=== PATIENT | female | born 1945 | race Caucasian/White ===

== ENCOUNTER 2017-03-30 19:31 | Emergency (ER) | payer MEDICARE, OTHER ==
[2017-03-30] MEDS ORDERED: RX INFO: IV CONTRAST WAS GIVEN 1 EACH MISC MISCELLANE PRN (19:37)
[2017-03-30 19:39] VITALS: BP 151/82; PULSE 88; RESP 16; TEMP 97.1
[2017-03-30 19:40] LABS: Glucose,Whole Blood 102 mg/dL (75-99)
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
[2017-03-30 20:15] LABS: Amorphous Sediment,Urine Rare /hpf; Appearance,Urine Clear (Clear); Bilirubin,Urine Negative (Negative); Blood,Urine Negative (Negative); Color,Urine Colorless; Glucose,Urine (UA) Negative (Negative); Ketones,Urine Negative (Negative); Leukocyte Esterase,Urine Small (Negative); Mucus,Urine Rare /hpf; Nitrite,Urine Negative (Negative); Protein,Urine Negative (Negative); RBC,Urine 3 /hpf (0-5); Specific Gravity,Urine 1.004 (1.001-1.035); Squamous Epithelial Cell,Urine <1 /hpf (0-4); Urobilinogen,Urine <2.0 mg/dL (<2.0); WBC,Urine 4 /hpf (0-5)
[2017-03-30 20:20] LABS: Basophils # (A) 0.1 k/uL (0-0.2); Basophils % (A) 1 %; Eosinophils # (A) 0.2 k/uL (0-0.7); Eosinophils % (A) 1 %; HCT 39.8 % (34.0-46.0); HGB 12.7 gm/dL (11.4-16.0); Lymphocytes # (A) 1.5 k/uL (1.0-4.8); Lymphocytes % (A) 13 %; MCH 32.1 pg (25.0-35.0); MCHC 31.9 g/dL (31.0-37.0); MCV 100.6 fL (80.0-100.0); Mean Platelet Volume 6.9; Monocytes # (A) 0.6 k/uL (0-1.0); Monocytes % (A) 5 %; Neutrophils # (A) 9.1 k/uL (1.3-7.7); Neutrophils % (A) 78 %; Platelet Count 286 k/uL (150-450); RBC 3.95 m/uL (3.80-5.40); WBC 11.6 k/uL (3.8-10.6)
[2017-03-30 20:22] LABS: Cocaine Screen,Urine Not Detected (NotDetected); Phencyclidine Screen,Urine Not Detected (NotDetected); Urn Cannabinoid Scrn Not Detected (NotDetected)
[2017-03-30 20:23] LABS: Amphetamine Screen,Urine Not Detected (NotDetected); Barbiturate Screen,Urine Not Detected (NotDetected); Benzodiazepines Screen,Urine Detected (NotDetected); Methadone Screen, Urine Not Detected (NotDetected); Opiate Screen,Urine Detected (NotDetected); Oxycodone Screen, Urine Not Detected (NotDetected); Tricyclic Antidepressant,Urine Not Detected (NotDetected)
[2017-03-30 20:24] LABS: INR 1.1 (<1.2); Prothrombin Time 10.3 sec (9.0-12.0)
[2017-03-30 20:26] LABS: Albumin 4.2 g/dL (3.5-5.0); Anion Gap 14 mmol/L; Carbon Dioxide 20 mmol/L (22-30); Chloride 108 mmol/L (98-107); Glucose 91 mg/dL (74-99); Sodium 142 mmol/L (137-145); Total Bilirubin 0.3 mg/dL (0.2-1.3); Total Protein 6.7 g/dL (6.3-8.2)
[2017-03-30 20:28] LABS: ALT 33 U/L (9-52); AST 41 U/L (14-36); Alcohol 185 mg/dL; Alkaline Phosphatase 63 U/L (38-126); Blood Urea Nitrogen 22 mg/dL (7-17); Potassium 4.7 mmol/L (3.5-5.1)
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
[2017-03-30] MEDS ORDERED: KETOROLAC 30 MG/ML 1 ML VIAL IVP STA (21:14)
[2017-03-31 01:17] LABS: Creatine Kinase 134 U/L (30-135)
[2017-03-31 01:29] LABS: Creatine Kinase MB 1.5 ng/mL (0.0-2.4); Troponin I <0.012 ng/mL (0.000-0.034)
== END 2017-03-30 21:34 | disposition short-term general hospital (02) ==
LOC: EC 19:31
DX: S22.42XA Multiple fractures of ribs, left side, initial encounter for closed fracture (principal); S09.90XA Unspecified injury of head, initial encounter; F10.129 Alcohol abuse with intoxication, unspecified; D72.829 Elevated white blood cell count, unspecified; R41.3 Other amnesia; K21.9 Gastro-esophageal reflux disease without esophagitis; E78.5 Hyperlipidemia, unspecified; I12.9 Hypertensive chronic kidney disease with stage 1 through stage 4 chronic kidney disease, or unspecified chronic kidney disease; N18.3 Chronic kidney disease, stage 3 (moderate); F32.9 Major depressive disorder, single episode, unspecified; Z85.828 Personal history of other malignant neoplasm of skin; Z87.891 Personal history of nicotine dependence; Z79.899 Other long term (current) drug therapy; V48.5XXA Car driver injured in noncollision transport accident in traffic accident, initial encounter; Y92.410 Unspecified street and highway as the place of occurrence of the external cause
CPT/HCPCS: 36415; 93005; 86900; 86901; 80053; 82550; 82553; 83605; 84484; 85025; 85610; 85730; 86850; 81001; 80306; 80320; 72170; 71045; 72125; 70450; 71260; 74177; 99291; 96374; J1885; Q9967

== ENCOUNTER → 2017-08-18 | Outpatient (CLI) | payer MEDICARE, OTHER | END | disposition home or self-care (01) | LOC: LABWHC1 11:19 | PROVIDERS: ATTEND Physical Medicine & Rehabilitation | DX: M48.062 Spinal stenosis, lumbar region with neurogenic claudication (principal); M43.16 Spondylolisthesis, lumbar region; M51.26 Other intervertebral disc displacement, lumbar region; M47.817 Spondylosis without myelopathy or radiculopathy, lumbosacral region; M54.16 Radiculopathy, lumbar region; M47.812 Spondylosis without myelopathy or radiculopathy, cervical region; M54.2 Cervicalgia | CPT/HCPCS: 36415; 82565; 84520 ==

== ENCOUNTER → 2017-09-16 | Outpatient (CLI) | payer MEDICARE, OTHER ==
--- NOTE | 2017-09-16 13:06 | BD ---
EXAMINATION TYPE: Axial Bone Density DATE OF EXAM: 09/16/2017 COMPARISON: NONE CLINICAL HISTORY: 71-year-old female postmenopausal screening Height: 65 Weight: 127.2 FRAX RISK QUESTIONS: Alcohol (3 or more units per day): no Family History (Parent hip fracture): no Glucocorticoids (More than 3mos): no (Ex: prednisone, prednisolone, methylprednisolone, dexamethasone, and hydrocortisone). History of Fracture in Adulthood: yes Secondary Osteoporosis: 1. Type 1 Diabetes: no 2. Hyperthyroidism: no 3. Menopause before 45: no 4. Malnutrition: no 5. Chronic liver disease: no Rheumatoid Arthritis: yes Current Tobacco Use: no RISK FACTORS HISTORY OF: Surgery to Spine/Hip(right/left)/Wrist (right/left): bilateral hips When: lumbar spine surgery- 2012 Family History of Osteoporosis: no Active: no Diet low in dairy products/other sources of calcium: yes Postmenopausal woman: hysterectomy 1993 Lost more than 2 inches in height since high school: just two inches MEDICATIONS: trazodone, atorvastatin, omeprazole, buspirone, Lexapro Additional History: EXAM MEASUREMENTS: Bone mineral densitometry was performed using the TBS System. Bone mineral density about the L Wrist (g/cm2): 0.497 T Score values are as follows: -----Dist. R+U: -2.7 -----Prox. R+U: -2.1 -----Radius total: -2.9 Bone mineral density : baseline IMPRESSION: Osteopenia (T Score between -2.5 and -1) as indicated by T score values at Radius 33%. Note that kishore urements border on osteoporosis. There is slightly increased risk of fracture and the patient may be considered for treatment. Re-Screen 2-5 years. NOTE: T-SCORE=SD OF THE YOUNG ADULT MEAN.
== END | disposition home or self-care (01) ==
LOC: RADBDWWP 09:09
PROVIDERS: ATTEND Family Medicine
DX: M85.88 Other specified disorders of bone density and structure, other site (principal); Z78.0 Asymptomatic menopausal state
CPT/HCPCS: 77081

== ENCOUNTER → 2018-01-22 | Outpatient (CLI) | payer MEDICARE, OTHER ==
--- NOTE | 2018-01-25 07:08 | MM ---
Reason for exam: screening (asymptomatic). Last mammogram was performed 3 years and 2 months ago. History: Patient is postmenopausal and history of other cancer. Retro-pectoral silicone gel implants in both breasts, 2001. Retro-pectoral silicone gel implants in both breasts, 1986. Benign excisional biopsy of the right breast, 1972. Took estrogen for 11 years beginning at age 48. Physical Findings: A clinical breast exam by your physician is recommended on an annual basis and results should be correlated with mammographic findings. MG 3D Screen Mammo Imp/Cad Bilateral CC and MLO view(s) were taken. Prior study comparison: November 15, 2014, bilateral MG diag mamm implants TIMO w CAD. November 14, 2013, bilateral MG diagnostic mammo w CAD TIMO. New microcalcifications upper outer right breast. 7.9cm from nipple. Bilateral implants are intact. This finding is changed when compared with previous exams. ASSESSMENT: Incomplete: need additional imaging evaluation, BI-RAD 0 RECOMMENDATION: Special view mammogram of the right breast. If lesion persists on supplemental views, image directed ultrasound is recommended. [facility] will attempt to contact patient to return for supplemental views and ultrasound if indicated.
== END | disposition home or self-care (01) ==
LOC: RADMAMWWP 12:40
PROVIDERS: ATTEND Family Medicine
DX: Z12.31 Encounter for screening mammogram for malignant neoplasm of breast (principal)
CPT/HCPCS: 77063; 77067

== ENCOUNTER → 2018-01-29 | Outpatient (CLI) | payer MEDICARE, OTHER ==
--- NOTE | 2018-02-01 13:36 | MM ---
Reason for exam: additional evaluation requested from abnormal screening. Last mammogram was performed less than 1 month ago. History: Patient is postmenopausal and history of other cancer. Retro-pectoral silicone gel implants in both breasts, 2001. Retro-pectoral silicone gel implants in both breasts, 1986. Benign excisional biopsy of the right breast, 1972. Took estrogen for 11 years beginning at age 48. Physical Findings: Nurse did not find any significant physical abnormalities on exam. MG 3D Work Up W/Cad W/Imp RT CC with magnification, LM with magnification, and LM view(s) were taken of the right breast. Prior study comparison: January 22, 2018, bilateral MG 3d screen mammo imp/cad. November 15, 2014, bilateral MG diag mamm implants TIMO w CAD. The breast tissue is heterogeneously dense. This may lower the sensitivity of mammography. Finding: There are increased number of round, grouped/clustered calcifications in the upper outer quadrant, middle position of the right breast. New finding since November 15, 2014. These results were verbally communicated with the patient and result sheet given to the patient on 01/29/18. ASSESSMENT: Suspicious, BI-RAD 4 RECOMMENDATION: Stereotactic core biopsy of the right breast. Called Dr. Camilo with mammographic findings and has scheduled an appointment for the patient for 02/09/18 at 2:[address] Gambino. PRELIMINARY REPORT CALLED AND FAXED TO DR. GAMBINO ON 02/01/18.
== END | disposition home or self-care (01) ==
LOC: RADMAMWWP 12:35
PROVIDERS: ATTEND Family Medicine
DX: R92.8 Other abnormal and inconclusive findings on diagnostic imaging of breast (principal)
CPT/HCPCS: 77065; G0279; 77061

== ENCOUNTER → 2018-02-11 | Day surgery (SDC) | payer MEDICARE, OTHER ==
[2018-02-11 12:22] VITALS: BMI 18.6
[2018-02-11 14:42] VITALS: BP 120/78; PULSE 73; RESP 16; TEMP 98
--- NOTE | 2018-02-12 09:44 | MM ---
EXAMINATION TYPE: MG stereo VAD BX RT, MG 3D work up w/cad w/imp RT DATE OF EXAM: 02/11/2018 COMPARISON: 01/22/2018, 01/29/2018, 11/15/2014 CLINICAL HISTORY: 72-year-old female referred for stereotactic core needle biopsy of right upper outer quadrant microcalcifications. TECHNIQUE: Stereotactic guided core biopsy of the right breast. FINDINGS: The procedure of stereotactic guided core biopsy was explained to the patient. Benefits, alternatives, and risks were discussed. An informed consent was then obtained. The shortness pathway was a lateral approach but could not be utilized due to persistent overlying pectoralis muscle. A CC from above approach was utilized. I performed the localization followed by the remainder of the procedure. A vacuum assisted biopsy gun was used to obtain multiple core samples. The patient tolerated the procedure well without any immediate complication. The patient was kept in the radiology department for short stay after the procedure and then discharged home in stable condition. Targeted calcifications are identified in specimen mammogram. Post biopsy mammogram shows the clip to be located slightly anterior also with approximately 2 cm of superior clip migration. The cc view shows a couple tiny residual calcifications. IMPRESSION: SUCCESSFUL, UNCOMPLICATED STEREOTACTIC GUIDED CORE BIOPSY OF POSTERIOR UPPER- OUTER QUADRANT RIGHT BREAST MICROCALCIFICATIONS. NOTE THAT THE CLIP IS DEPOSITED SLIGHTLY ANTERIORLY AND SHOWS 2 CM OF SUPERIOR MIGRATION. FULL PATHOLOGY RESULTS TO FOLLOW. Pathology Results: Benign BREAST, RIGHT, STEREOTACTIC CORE BIOPSY: Benign fibroadipose tissue with stromal scar/fibrosis and associated fat necrosis, calcifications and embedded foreign refractile material. No breast elements are identified. Recommendation Follow up mammogram of the right breast in 6 months. MILA
== END | disposition home or self-care (01) ==
LOC: RADMAMWWP 11:35
PROVIDERS: ATTEND Family Medicine
DX: N60.31 Fibrosclerosis of right breast (principal); N64.1 Fat necrosis of breast
CPT/HCPCS: 88305; 19081; A4648; J2001

== ENCOUNTER → 2018-03-11 | Day surgery (SDC) | payer MEDICARE, OTHER ==
[2018-03-04 13:03] VITALS: BMI 17.5
[~2018-03-11] MED LIST: LACTATED RINGERS 1,000 ML IV SCH; LIDOCAINE 1% 20 ML VIAL (10MG/ML) FOR IV START INTRADERMA PRN; MIDAZOLAM (PF) 2 MG/2 ML VIAL IV PRN; PROPOFOL 10 MG/ML 20 ML VIAL IV ONE
[2018-03-11 09:06] VITALS: RESP 16; TEMP 98
--- NOTE | 2018-03-11 11:05 | P.PCN ---
Date of Procedure: 03/11/18 Procedure(s) Performed: Procedure: Total colonoscopy. Preoperative diagnosis: History of polyps. Postoperative diagnosis: Significant diverticulosis with no evidence of acute diverticulitis, strictures, significant polyps or tumors. Preparation: HalfLytely prep. Sedation: Was provided by anesthesia. Brief clinical history: The patient is a 72-year-old female who is scheduled for this evaluation because of history of polyps and 25 pound weight loss over the last year. The patient has no abdominal complaints, bleeding or anemia. Her last exam was in 2009. Procedure: With the patient on her left lateral decubitus position and after informed consent and adequate sedation, the perianal area was inspected and it did not show any fissures or fistulas. There were no masses felt on digital rectal examination. The Olympus CFH 190L video colonoscope was then inserted in the rectum in the usual fashion and advanced to the cecum. There was significant diverticular disease with multiple diverticular orifices seen scattered on both sides of the colon with no evidence of acute diverticulitis or strictures. The preparation was less than ideal but there was no significant polyps or tumors seen or any obvious mucosal abnormalities or bleeding. I retroflexed the endoscope in the rectum before the endoscope was withdrawn. The patient tolerated the procedure well. Plan: The patient was reassured. Discussed dietary measures. She will follow- up with you as planned. At her age, I did not schedule further screening and advanced can be kept as a contingency based on her overall health in 5 years. She will be discussing that with you.
[2018-03-11 11:30] VITALS: BP 118/76; PULSE 74
== END ==
LOC: ORWHC2ENDO 08:42
DX: Z12.11 Encounter for screening for malignant neoplasm of colon (principal); K57.90 Diverticulosis of intestine, part unspecified, without perforation or abscess without bleeding; Z86.010 Personal history of colon polyps; R63.4 Abnormal weight loss; K21.9 Gastro-esophageal reflux disease without esophagitis; M19.90 Unspecified osteoarthritis, unspecified site; E78.5 Hyperlipidemia, unspecified; Z85.828 Personal history of other malignant neoplasm of skin; I12.9 Hypertensive chronic kidney disease with stage 1 through stage 4 chronic kidney disease, or unspecified chronic kidney disease; N18.3 Chronic kidney disease, stage 3 (moderate); E78.49 Other hyperlipidemia; G89.29 Other chronic pain; M54.9 Dorsalgia, unspecified; Z79.899 Other long term (current) drug therapy
CPT/HCPCS: J2704; G0105

== ENCOUNTER → 2018-03-31 | Outpatient (CLI) | payer MEDICARE, OTHER ==
--- NOTE | 2018-03-31 11:51 | CTL ---
EXAMINATION TYPE: CT Low Dose Lung DATE OF EXAM ORDERED: 03/31/2018 HISTORY: 72-year-old female personal history of tobacco use. Lung cancer screening CT DLP: [address] CTDI: 1.72 mGy Automated exposure control for dose reduction was used. SCREENING VISIT: Baseline COMPARISON: 03/30/2017 TECHNIQUE: Low dose computed tomography scan was performed through the chest at 1 mm thick sections a nd reconstructed images in the coronal/sagittal plane CT DIAGNOSTIC QUALITY: Satisfactory FINDINGS: Bilateral breast implants are demonstrated. Heart normal size with small anterior pericardial effusion measuring up to 8 mm thick. Aorta normal caliber with mild microcalcifications in conventional arch vessel branching anatomy. No thoracic lymph adenopathy by CT size criteria. Mild to moderate diffuse bronchial wall thickening and mild centrilobular emphysema. Biapical pleural parenchymal scarring is present. No consolidation or pleural effusion. No suspicious pulmonary nodules or masses. Visualized upper abdomen shows no gross abnormality. Bones: Healing of the left posterior 11th rib fracture. Delayed union of the left posterolateral 10th rib fracture. Grade 1 anterolisthesis at T2-T3 and T4-C5. The C7 present on the patient's prior exam and is probably on a degenerative basis. IMPRESSION: 1. LungRADS 1 - negative; no suspicious pulmonary nodules or masses. 2. COPD with mild emphysema and biapical pleural-parenchymal scarring. 3. Small anterior pericardial effusion measuring 8 mm thick. RECOMMENDATION: 1. Continue annual low-dose lung cancer screening CT. 2. Smoking cessation. FOLLOW UP CT CHEST RECOMMENDATION: [address] LUNG RAD: Lung-Rad 1 Negative
== END | disposition home or self-care (01) ==
LOC: RADCTMAIN 10:30
PROVIDERS: ATTEND Family Medicine
DX: Z12.2 Encounter for screening for malignant neoplasm of respiratory organs (principal); J43.9 Emphysema, unspecified; J98.4 Other disorders of lung; I31.3 Pericardial effusion (noninflammatory); Z87.891 Personal history of nicotine dependence

== ENCOUNTER → 2018-08-17 | Outpatient (CLI) | payer MEDICARE, OTHER ==
--- NOTE | 2018-08-17 11:31 | MM ---
Reason for exam: follow-up at short interval from prior study. Last mammogram was performed 7 months ago. History: Patient is postmenopausal and history of other cancer. Benign MG stereo VAD BX RT of the right breast, February 11, 2018. Retro-pectoral silicone gel implants in both breasts, 2001. Retro-pectoral silicone gel implants in both breasts, 1986. Benign excisional biopsy of the right breast, 1972. Took estrogen for 11 years beginning at age 48. Physical Findings: Nurse did not find any significant physical abnormalities on exam. MG 3D Diag Mammo Imp W/Cad RT CC, MLO, and ID view(s) were taken of the right breast. Prior study comparison: January 29, 2018, right breast MG 3d work up w/cad w/imp RT. January 22, 2018, bilateral MG 3d screen mammo imp/cad. The breast tissue is heterogeneously dense. This may lower the sensitivity of mammography. Stable right upper outer quadrant posterior depth focal asymmetry. There are residual left calcifications, some biopsied. Superior displacement of the biopsy marker 2.7cm. Some calcifications in prior specimen, no new or increased calcifications. These results were verbally communicated with the patient and result sheet given to the patient on 08/17/18. ASSESSMENT: Benign, BI-RAD 2 RECOMMENDATION: Return to routine screening mammogram schedule for both breasts. Back on schedule.
== END | disposition home or self-care (01) ==
LOC: RADMAMWWP 09:32
PROVIDERS: ATTEND Family Medicine
DX: R92.8 Other abnormal and inconclusive findings on diagnostic imaging of breast (principal); Z98.82 Breast implant status
CPT/HCPCS: 77065; G0279; 77061

== ENCOUNTER → 2018-10-19 | Outpatient (CLI) | payer MEDICARE, OTHER | END | disposition home or self-care (01) | LOC: LABWHC1 10:12 | PROVIDERS: ATTEND Nurse Practitioner | DX: E03.9 Hypothyroidism, unspecified (principal) | CPT/HCPCS: 36415; 84439; 84443 ==

== ENCOUNTER → 2018-11-09 | Outpatient (CLI) | payer MEDICARE, OTHER ==
[2018-11-09 13:32] LABS: HGB 13.6 gm/dL (11.4-16.0); MCH 30.6 pg (25.0-35.0); MCHC 32.4 g/dL (31.0-37.0); MCV 94.6 fL (80.0-100.0); Mean Platelet Volume 7.5; Platelet Count 291 k/uL (150-450); RBC 4.44 m/uL (3.80-5.40); RDW 13.7 % (11.5-15.5); WBC 6.9 k/uL (3.8-10.6)
== END | disposition home or self-care (01) ==
LOC: LABPAT 12:03
PROVIDERS: ATTEND Internal Medicine Interventional Cardiology
DX: Z01.812 Encounter for preprocedural laboratory examination (principal); R94.39 Abnormal result of other cardiovascular function study
CPT/HCPCS: 36415; 80051; 82565; 84520; 85027

== ENCOUNTER → 2018-11-17 | Day surgery (SDC) | payer MEDICARE, OTHER ==
[2018-11-12 10:44] VITALS: BMI 18.2
[~2018-11-17] MED LIST changes: +ALPRAZolam 0.25 MG TAB PO PRN; +ALPRAZolam 0.5 MG TAB PO PRN; +ASPIRIN 325 MG TAB PO STA; +ATORVASTATIN 80 MG TAB PO STA; +HEPARIN SODIUM 1,000 UN/ML (10ML VL) IV ONE; +HEPARIN SODIUM 1,000 UN/ML (10ML VL) ONE; +IOPAMIDOL-370 100ML BTL INJ ONE; -LACTATED RINGERS 1,000 ML IV SCH; -LIDOCAINE 1% 20 ML VIAL (10MG/ML) FOR IV START INTRADERMA PRN; +LIDOCAINE 1% INJ 10MG/ML (20 ML MDV) ONE; +LIDOCAINE 1% INJ 10MG/ML (20 ML MDV) SQ ONE; -MIDAZOLAM (PF) 2 MG/2 ML VIAL IV PRN; +NITROGLYCERIN SL TABS 0.4 MG TAB SUBLINGUAL PRN; -PROPOFOL 10 MG/ML 20 ML VIAL IV ONE; +SODIUM CHLORIDE 0.9% 1,000 ML IV ONE; +SODIUM CHLORIDE 0.9% 1,000 ML IV SCH; +SODIUM CHLORIDE 0.9% 1,000 ML in EMPTY BAG 1 BAG IV ONE; +VERAPAMIL 2.5 MG/ML 2 ML AMP ONE; +fentaNYL (PF) 50 MCG/ML 2 ML AMP ONE
[2018-11-17 06:43] VITALS: RESP 18; TEMP 97.8
[2018-11-17] MEDS: MIDAZOLAM (PF) 2 MG/2 ML VIAL IV ONE ×2 (07:38→07:45)
[2018-11-17] MEDS: VERAPAMIL SYRINGE (5 MG/10 ML) INTRAARTER ONE ×2 (07:40→07:53)
--- NOTE | 2018-11-17 08:41 | CC ---
CARDIAC CATHETERIZATION REPORT DATE OF SERVICE: 11/17/2018 PROCEDURE: Left heart catheterization and coronary angiography. PERFORMED BY: Dr. Kanika Morrison. Moderate conscious sedation time was 18 minutes. Patient was administered Versed. Oxygen saturation, hemodynamics and EKG were monitored closely. CLINICAL INFORMATION: Mrs. Gris Toro is a 73-year-old lady with hyperlipidemia and abnormal stress test, advised cardiac cath after due discussion regarding risks, benefits, and options. There was an inferior wall partially reversible defect with a question of hypokinesia. PROCEDURE NOTE: Under local anesthesia and strict aseptic precautions, a 6-Latvian introducer was placed in the right radial artery. A right Tawnya diagnostic catheter was used to check LV pressures and selective injection of the RCA. A JL3.5 was used to perform selective coronary angiography of the left system. Patient tolerated procedure well without complication. The sheath was taken out and a TR band applied as per protocol and she was sent to the room in a stable condition. Saturation in the fingers of the right hand was 97%. CARDIAC CATHETERIZATION FINDINGS: The left ventricular end-diastolic pressure was 6 mmHg without any gradient across aortic valve. CORONARY ANGIOGRAPHY FINDINGS: RIGHT CORONARY ARTERY: Large dominant vessel. No significant disease in the proximal, mid and distal portion. It bifurcates into a large PDA and PLV, both of which supply a sizable amount of myocardium. No significant disease in the large super dominant RCA system. LEFT MAIN CORONARY ARTERY: Short patent disease-free vessel that bifurcates into LAD and circumflex. LEFT ANTERIOR DESCENDING CORONARY ARTERY: Good caliber vessel extends along the anterior wall. No significant disease. Distally, the LAD bifurcates into a large diagonal that is free of significant disease and then continues as the LAD towards the apex. No significant disease in the entire LAD system. LEFT POSTERIOR CIRCUMFLEX CORONARY ARTERY: Technically nondominant vessel. Single obtuse marginal that runs laterally and an AV groove branch. No significant disease only minor irregularities noted. LEFT VENTRICULOGRAM: Left ventriculogram was not performed. FINAL IMPRESSION: This patient has a right dominant system. No significant disease. Normal filling pressures. No gradient across aortic valve. RECOMMENDATION: I am recommending continued medical therapy with risk factor modification. An echo will be performed and patient will be discharged later on today and will be seen next week in the office. MMODL / IJN: [id number] /
[2018-11-17 13:15] VITALS: BP 98/60; PULSE 68
--- NOTE | 2018-11-17 17:00 | ECHOF ---
Referral Reason:LV function wall motion MEASUREMENTS -------- HEIGHT: 167.6 cm WEIGHT: 51.3 kg BP: 112/78 RVIDd: 2.8 cm (< 3.3) IVSd: 0.9 cm (0.6 - 1.1) LVIDd: 3.9 cm (3.9 - 5.3) LVPWd: 0.9 cm (0.6 - 1.1) IVSs: 1.1 cm LVIDs: 2.9 cm LVPWs: 1.4 cm LA Diam: 2.9 cm (2.7 - 3.8) LAESV Index (A-L): 20.70 ml/m Ao Diam: 3.0 cm (2.0 - 3.7) AV Cusp: 1.9 cm (1.5 - 2.6) MV EXCURSION: 20.043 mm (> 18.000) MV EF SLOPE: 157 mm/s (70 - 150) EPSS: 0.5 cm MV E Darvin: 0.66 m/s MV DecT: 310 ms MV A Darvin: 0.76 m/s MV E/A Ratio: 0.87 RAP: 5.00 mmHg RVSP: 32.85 mmHg FINDINGS -------- Sinus rhythm. This was a technically adequate study. The left ventricular size is normal. Left ventricular wall thickness is normal. Overall left vent ricular systolic function is low-normal with, an EF between 50 - 55 %. The right ventricle is normal in size. Normal LA size by volume 22+/-6 ml/m2. The right atrium is normal in size. Interatrial and interventricular septum intact. The aortic valve is trileaflet and appears structurally normal. The mitral valve leaflets are mildly thickened. Mild mitral annular calcification present. Mild tricuspid regurgitation present. Right ventricular systolic pressure is normal at < 35 mmHg. Trace/mild (physiologic) pulmonic regurgitation. The aortic root size is normal. There is no pericardial effusion. CONCLUSIONS -------- 1. Sinus rhythm. 2. This was a technically adequate study. 3. The left ventricular size is normal. 4. Left ventricular wall thickness is normal. 5. Overall left ventricular systolic function is low-normal with, an EF between 50 - 55 %. 6. The right ventricle is normal in size. 7. Normal LA size by volume 22+/-6 ml/m2. 8. The right atrium is normal in size. 9. Interatrial and interventricular septum intact. 10. The aortic valve is trileaflet and appears structurally normal. 11. The mitral valve leaflets are mildly thickened. 12. Mild mitral annular calcification present. 13. Mild tricuspid regurgitation present. 14. Right ventricular systolic pressure is normal at < 35 mmHg. 15. Trace/mild (physiologic) pulmonic regurgitation. 16. The aortic root size is normal. 17. There is no pericardial effusion. MACHINE ASSEMBLER SUPERVISOR: Blank Musa RDCS
== END ==
LOC: CATHCVL 06:08
PROVIDERS: ATTEND Internal Medicine Interventional Cardiology
DX: I08.1 Rheumatic disorders of both mitral and tricuspid valves (principal); I37.1 Nonrheumatic pulmonary valve insufficiency; I20.0 Unstable angina; E78.00 Pure hypercholesterolemia, unspecified; R93.1 Abnormal findings on diagnostic imaging of heart and coronary circulation; Z82.49 Family history of ischemic heart disease and other diseases of the circulatory system; Z87.891 Personal history of nicotine dependence; J44.0 Chronic obstructive pulmonary disease with (acute) lower respiratory infection; J20.9 Acute bronchitis, unspecified; G89.29 Other chronic pain; M54.5 Low back pain; E78.2 Mixed hyperlipidemia; Z79.899 Other long term (current) drug therapy
CPT/HCPCS: 93306; 93458; C1769; C1894; J2001; J1644; Q9967; J2250

== ENCOUNTER → 2019-02-01 | Outpatient (CLI) | payer MEDICARE, OTHER ==
--- NOTE | 2019-02-02 11:07 | MM ---
Reason for exam: screening (asymptomatic). Last mammogram was performed 5 months ago. History: Patient is postmenopausal and history of other cancer. Benign MG stereo VAD BX RT of the right breast, February 11, 2018. Retro-pectoral silicone gel implants in both breasts, 2001. Retro-pectoral silicone gel implants in both breasts, 1986. Benign excisional biopsy of the right breast, 1972. Took estrogen for 11 years beginning at age 48. Physical Findings: A clinical breast exam by your physician is recommended on an annual basis and results should be correlated with mammographic findings. MG 3D Screen Mammo Imp/Cad Bilateral CC, MLO, and ID view(s) were taken. Prior study comparison: August 17, 2018, right breast MG 3d diag mammo imp w/cad RT. January 29, 2018, right breast MG 3d work up w/cad w/imp RT. The breast tissue is heterogeneously dense. This may lower the sensitivity of mammography. There are benign appearing round calcifications in the left breast. Right benign vascular calcifications. Previous mammotome biopsy in the right breast. There is chronic nodularity in the right breast. Asymmetric breast tissue left upper outer quadrant stable. There is no discrete abnormality. Bilateral subpectoral implants. ASSESSMENT: Benign, BI-RAD 2 RECOMMENDATION: Routine screening mammogram of both breasts in 2 years.
== END | disposition home or self-care (01) ==
LOC: RADMAMWWP 10:41
PROVIDERS: ATTEND Family Medicine
DX: Z12.31 Encounter for screening mammogram for malignant neoplasm of breast (principal)
CPT/HCPCS: 77063; 77067

== ENCOUNTER → 2020-07-05 | Outpatient (CLI) | payer MEDICARE, OTHER ==
--- NOTE | 2020-07-06 09:41 | MM ---
Reason for exam: screening (asymptomatic). Last mammogram was performed 1 year and 5 months ago. History: Patient is postmenopausal and history of other cancer. Benign MG stereo VAD BX RT of the right breast, February 11, 2018. Retro-pectoral silicone gel implants in both breasts, 2001. Retro-pectoral silicone gel implants in both breasts, 1986. Benign excisional biopsy of the right breast, 1972. Took estrogen for 11 years beginning at age 48. Physical Findings: A clinical breast exam by your physician is recommended on an annual basis and results should be correlated with mammographic findings. MG 3D Screen Mammo Imp/Cad Bilateral CC, MLO, and ID view(s) were taken. Prior study comparison: February 01, 2019, bilateral MG 3d screen mammo imp/cad. August 17, 2018, right breast MG 3d diag mammo imp w/cad RT. The breast tissue is heterogeneously dense. This may lower the sensitivity of mammography. Finding #1: There is a 10 mm equal density (isodense), oval mass in the upper outer quadrant of the right breast. Finding #2: There are typically benign calcifications in both breasts. ASSESSMENT: Incomplete: need additional imaging evaluation, BI-RAD 0 RECOMMENDATION: Ultrasound of the right breast. [facility] will attempt to contact patient to return for ultrasound.
== END | disposition home or self-care (01) ==
LOC: RADMAMWWP 10:50
PROVIDERS: ATTEND Family Medicine
DX: Z12.31 Encounter for screening mammogram for malignant neoplasm of breast (principal); Z78.0 Asymptomatic menopausal state
CPT/HCPCS: 77063; 77067

== ENCOUNTER → 2020-07-10 | Outpatient (CLI) | payer MEDICARE, OTHER ==
--- NOTE | 2020-07-10 10:45 | USB ---
Reason for exam: clinical finding. History: Patient is postmenopausal and history of other cancer. Benign MG stereo VAD BX RT of the right breast, February 11, 2018. Retro-pectoral silicone gel implants in both breasts, 2001. Retro-pectoral silicone gel implants in both breasts, 1986. Benign excisional biopsy of the right breast, 1972. Took estrogen for 11 years beginning at age 48. Indicated problem(s): palpable abnormality and pain in the right breast. Physical Findings: Nurse did not find any significant physical abnormalities on exam. US Breast Workup Limited RT Right limited breast ultrasound including focal area of concern, retroareolar and axilla demonstrates a 0.4 x 0.3 x 0.4cm lesion too small to characterize at the posterior nipple. These results were verbally communicated with the patient and result sheet given to the patient on 07/10/20. ASSESSMENT: Probably benign, BI-RAD 3 RECOMMENDATION: Ultrasound of the right breast in 6 months. Manage patient on a clinical basis.
== END | disposition home or self-care (01) ==
LOC: RADUSWWP 08:41
PROVIDERS: ATTEND Family Medicine
DX: N64.59 Other signs and symptoms in breast (principal); Z78.0 Asymptomatic menopausal state

== ENCOUNTER → 2021-01-21 | Outpatient (CLI) | payer MEDICARE, OTHER ==
--- NOTE | 2021-01-21 11:10 | USB ---
Reason for exam: follow-up at short interval from prior study. History: Patient is postmenopausal and history of other cancer. Benign MG stereo VAD BX RT of the right breast, February 11, 2018. Retro-pectoral silicone gel implants in both breasts, 2001. Retro-pectoral silicone gel implants in both breasts, 1986. Benign excisional biopsy of the right breast, 1972. Took estrogen for 11 years beginning at age 48. Physical Findings: Nurse did not find any significant physical abnormalities on exam. US Breast Limited RT Right limited breast ultrasound including focal area of concern, retroareolar and axilla demonstrates a 0.5 x 0.3 x 0.5cm lesion too small to characterize at the posterior nipple versus 4 x 4 x 3mm previously, continued follow up recommended. Scanned 9-12 o'clock. These results were verbally communicated with the patient and result sheet given to the patient on 01/21/21. ASSESSMENT: Probably benign, BI-RAD 3 RECOMMENDATION: Follow-up diagnostic mammogram of both breasts in 6 months. Ultrasound of the right breast in 6 months.
== END | disposition home or self-care (01) ==
LOC: RADUSWWP 09:30
PROVIDERS: ATTEND Family Medicine
DX: N64.89 Other specified disorders of breast (principal); Z78.0 Asymptomatic menopausal state

== ENCOUNTER → 2021-01-23 | Outpatient (CLI) | payer MEDICARE, OTHER ==
--- NOTE | 2021-01-23 14:33 | US ---
EXAMINATION TYPE: US kidneys/renal and bladder DATE OF EXAM: 01/23/2021 COMPARISON: CT 03/30/2017 CLINICAL HISTORY: 75-year-old female N18.3 chronic kidney disease stage 3. TECHNIQUE: Multiple sonographic images of the kidneys and bladder are obtained. FINDINGS: EXAM MEASUREMENTS: Right Kidney: 7.7 x 3.9 x 4.0 cm Left Kidney: 9.1 x 4.7 x 3.8 cm Right Kidney: measures small in size, 1.4cm cyst lateral midpole. There is an extrarenal pelvis. No c alyceal dilatation to suggest hydronephrosis. Left Kidney: 1.4cm cyst inferior pole. No hydronephrosis. Bladder: wnl Bilateral Jets seen: yes IMPRESSION: Relatively small size of the kidneys suggest chronic medical renal disease. No hydronephrosis. A rosa gn cortical cyst on either side measuring up to 1.4 cm.
== END ==
LOC: RADUSWWP 10:39
PROVIDERS: ATTEND Internal Medicine Nephrology
DX: N18.30 Chronic kidney disease, stage 3 unspecified (principal); N28.1 Cyst of kidney, acquired
CPT/HCPCS: 76770

== ENCOUNTER → 2021-08-02 | Outpatient (CLI) | payer MEDICARE, OTHER ==
--- NOTE | 2021-08-02 15:28 | USB ---
Reason for Exam: Follow-up at short interval from prior study. Last mammogram was performed 1 year(s) and 1 month(s) ago. Patient History: Menarche at age 9. First Full-Term at age 17. Left ovary removed at age 47. Right ovary removed at age 47. Hysterectomy at age 47. Postmenopausal. Other cancer. Estrogen for 11 years from age 48 until age 62. 1972, Benign Excisional Biopsy on the right side. 02/11/2018, Benign Core Biopsy on the right side. 2001, Bilateral Implants. 1986, Bilateral Implants. Risk Values: Areli 5 year model risk: 2.1%. NCI Lifetime model risk: 4.0%. Film Views: Bilateral CC views were taken. Bilateral MLO views were taken. Bilateral MLOID views were taken. Bilateral CCID views were taken. Prior Study Comparison: 08/17/2018 Right Diagnostic Mammogram, [facility]. 02/01/2019 Bilateral Screening Mammogram, [facility]. 07/05/2020 Bilateral Screening Mammogram, [facility]. Tissue Density: There are scattered fibroglandular densities. Findings: Analyzed By CAD. Mammogram. Bilateral subpectoral implants redemonstrated. Benign biopsy clip right breast redemonstrated. Asymmetrically prominent tissue in the right breast unchanged from prior studies. Benign-appearing vascular calcification in the right breast. Occasional scattered benign-appearing round calcifications in the bilateral breasts redemonstrated. No suspicious new mass or worrisome cluster or microcalcification. . Technique: Method: Targeted. Findings: The upper outer quadrant of the right breast, the axilla of the right breast and the retroareolar of the right breast were scanned. No significant changes when compared with prior studies. no findings, unable to reproduce posterior nipple lesion.No distinct solid or cystic mass on images obtained. Partial visualization of known implant anterior wall redemonstrated. Overall Assessment: Benign, BI-RAD 2 Assessment: MG 3D diag mammo imp w/cad TIMO - Bilateral: Benign, BI-RAD 2. US breast limited RT - Right: Benign, BI-RAD 2. Management: Screening Mammogram of both breasts. Results were given to the patient verbally at the time of exam. Electronically signed and approved by: Mehul De Leon M.D.
== END | disposition home or self-care (01) ==
LOC: RADMAMWWP 14:05
PROVIDERS: ATTEND Family Medicine
DX: R92.1 Mammographic calcification found on diagnostic imaging of breast (principal); Z78.0 Asymptomatic menopausal state; Z90.721 Acquired absence of ovaries, unilateral
CPT/HCPCS: 77066; 76642; G0279; 77062

== ENCOUNTER → 2022-08-06 | Outpatient (CLI) | payer MEDICARE, OTHER | END | disposition home or self-care (01) | LOC: RADMAMWWP 10:48 | PROVIDERS: ATTEND Family Medicine | DX: Z53.9 Procedure and treatment not carried out, unspecified reason (principal) ==